=== PATIENT | female | born 1945 | race Caucasian/White ===

== ENCOUNTER 2019-04-28 05:50 | Emergency (ER) | payer MEDICARE ==
[2019-04-28] MEDS: Sodium Chloride 0.9% 1,000 ML IV ONE ×2 (06:12→07:30)
--- NOTE | 2019-04-28 14:26 | ER ---
REASON FOR EMERGENCY ROOM VISIT: Diarrhea and syncope. HISTORY: This 73-year-old woman along with her were up in the area planning on doing ice fishing this weekend. She was brought in by ambulance after she experienced an episode of weakness, lightheadedness, and possible syncopal episode. Her history dates back 5 or 6 days when she began to have diarrhea that she describes as very loose, but not watery. She typically had 4 or 5 loose stools per day if not more than that. Her oral intake has been decreased since the onset of this including liquids. She has been taking Imodium however. She denied any nausea or vomiting. She has not had any fever; although, this morning she states she did feel clammy. She states that she felt more sweaty than usual last evening and her episode in this morning when she got up to go to have a bowel movement, she became lightheaded and fell to the floor. Her states he think she "passed out." She may have had 2 of these episodes overnight that were quite similar in nature. She has not had any myalgias, fevers, or chills; although, she did have diaphoresis overnight as described above. She has not had any headaches. She denies any weakness or numbness or visual symptoms. She has not had any blood in her stools. No one else in her immediate family has been ill. They have not done any traveling apart from traveling up here from the [facility] to go ice fishing. PAST MEDICAL HISTORY: Remarkably unremarkable. MEDICATIONS: None. ALLERGIES: NONE. REVIEW OF SYSTEMS: Pertinent positives and negatives as listed above in the HPI. PHYSICAL EXAMINATION: GENERAL: She is calm, alert, and in no acute distress. VITAL SIGNS: Her blood pressure lying was 119/66 and sitting was 111/58, respiratory rate 16, heart rate 67, O2 sats 97% on room air. HEENT: Head is normocephalic. Pupils equally round and reactive to light. No scleral icterus or conjunctivitis. NECK: Supple. No signs of meningeal irritation. No adenopathy. No JVD. CHEST: Clear to auscultation with good air exchange. No wheezes, rhonchi, or rales. CARDIAC: Regular rate without murmur. ABDOMEN: Nondistended. Bowel sounds are present. Soft and nontender. No rebound or guarding. No percussion tenderness is noted. She has no CVA tenderness. EXTREMITIES: [place] and warm with good capillary refill. NEUROLOGIC: She moves all extremities equally well. She has no numbness to crude touch. LABORATORY DATA: Her CMP was unremarkable. Her electrolytes are normal. Her CBC is within normal limits as well. Her urinalysis is normal. Stool for C difficile toxin antigen was negative. FURTHER EMERGENCY ROOM COURSE: She was given 1 L of normal saline IV and she was observed in the emergency room for approximately 3-1/2 hours. Her symptoms improved; although, she still feels somewhat weak. She did not have any continued diarrhea while she was here. IMPRESSION: Diarrhea with dehydration. PLAN: I discussed the importance of adequate hydration and clear liquids to them as to whether or not they should continue with her efforts to go ice fishing this weekend. I left it up to their discretion. They may want to go home early if she is still feeling unwell. All questions were answered. They understand and agree with this plan. KELECHI /[id number]
== END 2019-04-28 09:30 | disposition home or self-care (01) ==
LOC: LB.ED 05:50
DX: E86.0 Dehydration (principal); R19.7 Diarrhea, unspecified
CPT/HCPCS: 36415; 80053; 81001; 85025; 87493; 96360; 99283; 99284; A0425; A0429; J7030